=== PATIENT | female | born 1930 | race African-American/Black ===

== ENCOUNTER 2017-07-10 14:23 | Emergency (ER) | payer MEDICARE, BC ==
[~2017-07-10] VITALS: Ht 167.6 cm; Wt 72.6 kg
--- NOTE | 2017-07-10 14:58 | Emergency Room Report ---
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 Patient has a colostomy bag in place Previously the patient had history of headaches family reports patient would have headaches 2-3 days out of the week however now for the past one month patient has been having headaches on a daily basis Describes the pain as forhead for region Pounding and throbbing Denies any neck pain or photophobia denies any vomiting Denies any focal weakness Denies any chest pain or shortness of breath Denies any change in medications Allergies: Coded Allergies: No Known Allergies (Unverified , 07/10/17) Patient History Past Medical History: see triage record Pertinent Family History: none Reviewed Nursing Documentation: PMH: Agreed, PSxH: Agreed Nursing Documentation-PMH Past Medical History: No History, Except For Hx Cancer: Yes - COLON, BREAST Hx Gastrointestinal Problems: Yes - COLOSTOMY Review of Systems All Other Systems: negative except mentioned in HPI Physical Exam Vital Signs Date Time Temp Pulse Resp B/P (MAP) Pulse Ox O2 Delivery O2 Flow Rate FiO2 07/10/17 14:27 97.3 83 20 124/76 100 Room Air Sp02 EP Interpretation: reviewed, normal General Appearance: well appearing, no apparent distress Head: normocephalic, atraumatic Eyes: bilateral eye PERRL, bilateral eye EOMI ENT: hearing grossly normal, normal pharynx, TMs + canals normal, uvula midline Neck: full range of motion, supple, no meningismus, no bony tend Respiratory: lungs clear, normal breath sounds, no rhonchi, no respiratory distress, no retraction, no accessory muscle use Cardiovascular #1: normal peripheral pulses, regular rate, rhythm, no edema, no gallop, no JVD, no murmur Gastrointestinal: normal bowel sounds, non tender - Colostomy bag is in place, soft, no mass, no organomegaly, non-distended, no guarding, no hernia, no pulsatile mass, no rebound Genitourinary: no CVA tenderness Musculoskeletal: normal inspection Neurologic: oriented x3, responsive, [employer] III-XII nml as tested, motor strength/ tone normal, sensory intact Psychiatric: mood/affect normal Skin: normal color, no rash, warm/dry, palpation normal Lymphatic: normal inspection, no adenopathy Medical Decision Making Diagnostic Impression: Primary Impression: Headache ER Course Multiple differentials considered including but not limited to, intracranial pathology such as mass, tumor, hemorrhage Other differential including neurological no surgical pathology along with infectious pathology entertained Patient is a fairly benign neurological exam however given the duration of the pain and in conjunction with the patient's primary physician CAT scan imaging was obtained No obvious acute pathology is visualized Patient's discomfort is also mainly in the fore head region, I do not suspect any obvious meningitis And the patient stable for close outpatient followup Labs Test 07/10/17 15:35 White Blood Count 6.3 K/UL (4.8-10.8) Red Blood Count 4.41 M/UL (4.20-5.40) Hemoglobin 12.0 G/DL (12.0-16.0) Hematocrit 39.3 % (37.0-47.0) Mean Corpuscular Volume 89 FL (80-99) Mean Corpuscular Hemoglobin 27.3 PG (27.0-31.0) Mean Corpuscular Hemoglobin Concent 30.6 G/DL (32.0-36.0) Red Cell Distribution Width 13.4 % (11.6-14.8) Platelet Count 176 K/UL (150-450) Mean Platelet Volume 6.0 FL (6.5-10.1) Neutrophils (%) (Auto) 65.7 % (45.0-75.0) Lymphocytes (%) (Auto) 24.6 % (20.0-45.0) Monocytes (%) (Auto) 7.9 % (1.0-10.0) Eosinophils (%) (Auto) 1.1 % (0.0-3.0) Basophils (%) (Auto) 0.8 % (0.0-2.0) Prothrombin Time 9.8 SEC (9.30-11.50) Prothromb Time International Ratio 0.9 (0.9-1.1) Activated Partial Thromboplast Time 25 SEC (23-33) Sodium Level 142 mEQ/L (135-145) Potassium Level 4.1 mEQ/L (3.4-4.9) Chloride Level 107 mEQ/L (98-107) Carbon Dioxide Level 23 mEQ/L (20-30) Anion Gap 12 (5-15) Blood Urea Nitrogen 20 mg/dL (7-23) Creatinine 1.4 mg/dL (0.5-0.9) Estimat Glomerular Filtration Rate mL/min (>60) Glucose Level 90 mg/dL (74-106) Calcium Level 8.8 mg/dL (8.6-10.2) Total Bilirubin 0.4 mg/dL (0.0-1.2) Aspartate Amino Transf (AST/SGOT) 14 U/L (5-40) Alanine Aminotransferase (ALT/SGPT) 7 U/L (3-33) Alkaline Phosphatase 59 U/L (35-104) Total Creatine Kinase 95 U/L (26-140) Creatine Kinase MB < 1.5 ng/mL (< 3.8) Creatine Kinase MB Relative Index Troponin I < 0.30 ng/mL (<=0.30) Pro-B-Type Natriuretic Peptide 181 pg/mL (0-450) Total Protein 7.0 g/dL (6.6-8.7) Albumin 4.0 g/dL (3.5-5.2) Globulin 3.0 g/dL Albumin/Globulin Ratio 1.3 (1.0-2.7) Lipase 29 U/L (< 60) Rhythm Strip Diag. Results EP Interpretation: yes Rate: 88 Rhythm: NSR, no PVC's, no ectopy Chest X-Ray Diagnostic Results Chest X-Ray Diagnostic Results : Chest X-Ray Ordered: Yes # of Views/Limited/Complete: 1 View Indication: Chest Pain EP Interpretation: Yes Interpretation: no consolidation, no effusion, no pneumothorax, other - Nonspecific findings including osteopenia, right upper long atelectasis Impression: No acute disease Electronically Signed by: Jonel Mccauley DO CT/MRI/US Diagnostic Results CT/MRI/US Diagnostic Results : Impression CT head no acute disease Last Vital Signs Date Time Temp Pulse Resp B/P (MAP) Pulse Ox O2 Delivery O2 Flow Rate FiO2 07/10/17 14:27 97.3 83 20 124/76 100 Room Air Status: improved Disposition: HOME, SELF-CARE Condition: Improved Additional Instructions: Patient is provided with the discharge instructions notified to follow up with primary doctor in the next 2-3 days otherwise return to the er with any worsening symptoms. Please note that this report is being documented using [employer] technology. This can lead to erroneous entry secondary to incorrect interpretation by the dictating instrument. JONEL MCCAULEY D.O. 26, 2017 14:58
--- NOTE | 2017-07-10 15:48 | Diagnostic Imaging Report ---
Indication: Headache Technique: Contiguous 5 mm thick transaxial imaging of the head obtained in a Siem[employer] Sensation [address] scanner. Soft tissue and bone windows generated. Total Dose length Product (DLP): [address] Dose Index Volume (CTDIvol): 70.38, 0.15 mGy Comparison: none Findings: There is mild prominence of the ventricles, basal cisterns, and cerebral sulci consistent with atrophy. Mild, nonspecific, white matter hypoattenuation is noted throughout the brain consistent with chronic small vessel disease. There is no midline shift, edema, acute hemorrhage, mass effect, or abnormal extra-axial fluid collections. Bones and extra osseous soft tissues are unremarkable. Impression: No acute intracranial bleed, mass effect or edema. Mild atrophy of the brain. Nonspecific white matter hypoattenuation probably due to chronic small vessel disease. The CT scanner at [facility] is accredited by the [employer] and the scans are performed using dose optimization techniques as appropriate to a performed exam including Automatic Exposure control.
--- NOTE | 2017-07-10 15:49 | Diagnostic Imaging Report ---
Indication: Dyspnea Comparison: 06/18/14 A single view chest radiograph was obtained. Findings: There is scarring in the right upper lobe again demonstrated. Suggestion of some hyperlucency at the right lung base. Heart is normal in size. Aorta is ectatic. Bones are osteopenic. Impression: Chronic findings.
[2017-07-10 15:57] LABS: BASOPHILS % (AUTO) 0.8 % (0.0-2.0); EOSINOPHILS % (AUTO) 1.1 % (0.0-3.0); LYMPHOCYTES % (AUTO) 24.6 % (20.0-45.0); MEAN CORPUSCULAR HEMOGLOBIN 27.3 PG (27.0-31.0); MEAN CORPUSCULAR HGB CONC 30.6 G/DL (32.0-36.0); MEAN CORPUSCULAR VOLUME 89 FL (80-99); MONOCYTES % (AUTO) 7.9 % (1.0-10.0); NEUTROPHILS % (AUTO) 65.7 % (45.0-75.0); PLATELET COUNT 176 K/UL (150-450); RED BLOOD COUNT 4.41 M/UL (4.20-5.40); RED CELL DISTRIBUTION WIDTH 13.4 % (11.6-14.8); WHITE BLOOD COUNT 6.3 K/UL (4.8-10.8)
[2017-07-10 16:07] LABS: INR 0.9 (0.9-1.1); PROTHROMBIN TIME 9.8 SEC (9.30-11.50)
[2017-07-10 16:10] VITALS: BP 148/71
[2017-07-10 16:12] LABS: TROPONIN I < 0.30 ng/mL (<=0.30)
[2017-07-10 16:15] LABS: ALANINE AMINOTRANSFERASE 7 U/L (3-33); ALBUMIN/GLOBULIN RATIO 1.3 (1.0-2.7); ANION GAP 12 (5-15); ASPARTATE AMINO TRANSFERASE 14 U/L (5-40); CALCIUM 8.8 mg/dL (8.6-10.2); CARBON DIOXIDE 23 mEQ/L (20-30); CHLORIDE 107 mEQ/L (98-107); CREATININE 1.4 mg/dL (0.5-0.9); HEMOLYSIS 21; LIPASE 29 U/L (< 60); POTASSIUM 4.1 mEQ/L (3.4-4.9); SODIUM 142 mEQ/L (135-145)
[2017-07-10 16:26] LABS: CKMB < 1.5 ng/mL (< 3.8)
[2017-07-10 17:10] VITALS: BP 150/63
--- NOTE | 2017-07-13 15:23 | Cardiology Report ---
APPROVED REPORT EKG Measurement Heart [id number] Sinus rhythm with premature atrial complexes Otherwise normal ECG
== END 2017-07-10 17:20 | disposition home or self-care (01) ==
LOC: EMR 15:30
DX: R51 Headache (principal); Z85.43 Personal history of malignant neoplasm of ovary; Z90.710 Acquired absence of both cervix and uterus; Z85.3 Personal history of malignant neoplasm of breast; Z93.3 Colostomy status
CPT/HCPCS: 36415; 70450; 71010; 80053; 82550; 82553; 83690; 83880; 84484; 85025; 85610; 85730; 93005; 96360; 99284; J7040